=== PATIENT | male | born 1995 | race Two or more races ===

== ENCOUNTER 2023-11-29 17:08 | Emergency (ER) | payer OTHER | END 2023-11-29 17:55 | disposition home or self-care (01) | LOC: FB.ED 17:08 | DX: S39.012A Strain of muscle, fascia and tendon of lower back, initial encounter (principal); S16.1XXA Strain of muscle, fascia and tendon at neck level, initial encounter; V49.49XA Driver injured in collision with other motor vehicles in traffic accident, initial encounter; Y93.89 Activity, other specified | CPT/HCPCS: 99283 ==